=== PATIENT | female | born 1980 | race Caucasian/White ===

== ENCOUNTER 2020-01-09 16:30 | Emergency (ER) | payer MEDICAID ==
[~2020-01-09] VITALS: Ht 177.8 cm; Wt 98.9 kg
[2020-01-09 17:19] LABS: RAPID INFLUENZA A Negative (Negative); RAPID INFLUENZA B Negative (Negative)
--- NOTE | 2020-01-09 19:09 | NUR ---
PT TO ROOM FROM LOBBY
--- NOTE | 2020-01-09 19:26 | NUR ---
PT RESTING ON GURNEY IN NO DISTRESS. LABS AND CXR RESULTS ARE BACK. CHART UP FOR RECHECK/AWAITING PROVIDER TO SEE PT. NO NEW COMPLAINTS. MONITORING EQUIPMENT APPLIED AND VITALS ASSESSED. ALL STABLE. WILL CONTINUE TO MONITOR.
[2020-01-09] MEDS ORDERED: ONDANSETRON ODT 4 MG PO ONE (20:00)
[2020-01-09] MEDS ORDERED: OXYcodone/APAP 5/325MG TABLET PO ONE (20:00)
--- NOTE | 2020-01-09 20:01 | NUR ---
PT EVALUATED BY ER PROVIDER. NEW ORDERS RECEIVED
[2020-01-09] MEDS ORDERED: OXYcodone/APAP 5/325MG TABLET ONE (20:04)
[2020-01-09] MEDS ORDERED: ONDANSETRON ODT 4 MG ONE (20:04)
--- NOTE | 2020-01-09 20:06 | NUR ---
PT IN US
--- NOTE | 2020-01-09 20:18 | NUR ---
PT MEDICATED PER EMAR. 5 RIGHTS ADDRESSED. AWAITING US RESULTS. NO DISTRESS NOTED. WILL CONTINUE TO MONTIOR.
--- NOTE | 2020-01-09 20:50 | NUR ---
CHART UP FOR RECHECK
--- NOTE | 2020-01-09 21:35 | NUR ---
STILL AWAITING DC PAPERWORK AT THIS TIME
[2020-01-09 21:36] VITALS: BP 136/84
--- NOTE | 2020-01-09 21:54 | NUR ---
Patient/Caregiver given discharge instructions and they have confirmed that they understand the instructions. Patient ambulatory with steady gait.
== END 2020-01-09 21:56 ==
LOC: ED 21:50
DX: L04.1 Acute lymphadenitis of trunk (principal); J20.8 Acute bronchitis due to other specified organisms; B97.89 Other viral agents as the cause of diseases classified elsewhere; R10.9 Unspecified abdominal pain; M79.10 Myalgia, unspecified site; F17.210 Nicotine dependence, cigarettes, uncomplicated; Z90.49 Acquired absence of other specified parts of digestive tract
CPT/HCPCS: 71046; 76857; 87400; 99285; Q0162

== ENCOUNTER 2021-03-24 11:13 | Emergency (ER) | payer MEDICAID ==
[~2021-03-24] VITALS: Ht 177.8 cm; Wt 107.3 kg
[~2021-03-24 11:13] MED LIST: SULF-23 PO
--- NOTE | 2021-03-24 11:27 | NUR ---
PT AMBULATED TO ROOM. ATTACHED TO CARDIAC/ SP02/ BP MONITORS. PT C/O OF ALLERGIC REACTION THAT BEGAN WITH RASH THURSDAY AFTER USING A NEW APOXY RESIN TO MAKE CRAFTS. PT NOTED TO HAVE FACE SWELLING AND EYE CLOSURE SINCE YESTERDAY. DENIES CP AND SOB.
[2021-03-24] MEDS ORDERED: FAMOTIDINE 20 MG TABLET ONE (11:39)
[2021-03-24] MEDS ORDERED: DIPHENHYDRAMINE 25 MG CAPSULE ONE (11:40)
--- NOTE | 2021-03-24 11:44 | NUR ---
PT RESTING IN BED WITH NEICE AT BEDSIDE. TOLERATING MEDICATIONS. VSS. PT IN NAD. BREATHING EVEN AND UNLABORED.
[2021-03-24] MEDS ORDERED: FAMOTIDINE 20 MG TABLET PO ONE (12:00)
[2021-03-24] MEDS ORDERED: DIPHENHYDRAMINE 25 MG CAPSULE PO ONE (12:00)
[2021-03-24 13:31] VITALS: BP 116/72
== END 2021-03-24 13:33 | disposition home or self-care (01) ==
LOC: ED 12:03
DX: T78.49XA Other allergy, initial encounter (principal); R21 Rash and other nonspecific skin eruption; F17.210 Nicotine dependence, cigarettes, uncomplicated; Z90.49 Acquired absence of other specified parts of digestive tract; X58.XXXA Exposure to other specified factors, initial encounter
CPT/HCPCS: 99284; 99406; J7512; Q0163

== ENCOUNTER 2021-03-30 07:46 | Emergency (ER) | payer MEDICAID ==
[~2021-03-30] VITALS: Ht 180.3 cm; Wt 108.0 kg
[2021-03-30 07:52] VITALS: BP 140/83
== END 2021-03-30 08:26 | disposition home or self-care (01) ==
LOC: ED 08:01
DX: T78.40XA Allergy, unspecified, initial encounter (principal); L20.9 Atopic dermatitis, unspecified; X58.XXXA Exposure to other specified factors, initial encounter
CPT/HCPCS: 99283